=== PATIENT | female | born 1960 | race Caucasian/White ===

== ENCOUNTER → 2021-07-17 | Outpatient (CLI) | LOC: M LABSMTC 10:39 → EDUNIT# 10:45 | PROVIDERS: ATTEND Anesthesiology | DX: Z01.818 Encounter for other preprocedural examination (principal); Z11.52 Encounter for screening for COVID-19 ==

== ENCOUNTER 2021-07-22 06:21 | Day surgery (SDC) | payer BC, SELFPAY ==
[~2021-07-22] VITALS: Ht 172.7 cm; Wt 75.5 kg
[~2021-07-22 06:21] MED LIST: CALM PO; CAND16TA7 PO; LR 1,000 ML IV ONE; ROSU5TAB5 PO
[2021-07-22] MEDS ORDERED: CLINDAMYCIN 900 MG in IV 1 EA IV ONE (06:30)
[2021-07-22] MEDS ORDERED: LIDOCAINE 1% MDV 20ML VIAL As Ordered ONE (07:18)
[2021-07-22] MEDS ORDERED: BUPIVACAINE LIPOSOME/PF 1.3% 20ML VIAL (13.3MG/ML)(EXPAREL)(C9290 PER1MG) As Ordered ONE (07:19)
[2021-07-22] MEDS ORDERED: EPINEPHrine INJ 1 MG/ML 1ML AMP As Ordered ONE (07:19)
[2021-07-22] MEDS ORDERED: LIDOCAINE 2% 100MG/5ML SDV (FOR ANES.) As Ordered ONE (07:22)
[2021-07-22] MEDS ORDERED: ROCURONIUM BROMIDE 50 MG/5 ML VIAL As Ordered ONE ×3 (07:22→10:27)
[2021-07-22] MEDS ORDERED: propofoL 200 MG/20 ML VIAL As Ordered ONE (07:22)
[2021-07-22] MEDS ORDERED: dexameTHASONE 4 MG/ML 1ML VIAL (J1100 PER 1MG) As Ordered ONE (07:22)
[2021-07-22] MEDS ORDERED: ONDANSETRON 4MG/2ML VIAL As Ordered ONE (07:22)
[2021-07-22] MEDS ORDERED: fentaNYL 250 MCG/5 ML INJECTION (J3010) As Ordered ONE (07:23)
[2021-07-22] MEDS ORDERED: MIDAZOLAM INJ 2MG/2ML VIAL (J2250 PER 1MG) As Ordered ONE (07:23)
[2021-07-22] MEDS ORDERED: LACRILUBE (AKWA TEARS) OPHTH OINT 3.5 GM As Ordered ONE (07:26)
[2021-07-22] MEDS ORDERED: SCOPOLAMINE 1MG TRANSDERMAL PATCH TOP ONE (07:30)
[2021-07-22] MEDS ORDERED: SEVOFLURANE INHAL SOLN 250 ML BTL As Ordered ONE (07:59)
[2021-07-22] MEDS ORDERED: GENTAMICIN SULF 80MG/2ML VIAL As Ordered ONE (08:12)
[2021-07-22] MEDS ORDERED: ePHEDrine SULFATE 25 MG/5 ML(5MG/ML) SYRINGE As Ordered ONE ×2 (08:24→09:05)
[2021-07-22] MEDS ORDERED: ACETAMINOPHEN 1000MG 100ML IV BTL (OFIRMEV) (J0131 PER 10MG) As Ordered ONE (08:40)
[2021-07-22] MEDS ORDERED: SUGAMMADEX SODIUM 500 MG/5 ML VIAL (BRIDION) As Ordered ONE (08:40)
[2021-07-22] MEDS ORDERED: HYDROmorphone HCL 2 MG/ML 1ML VIAL As Ordered ONE (08:41)
[2021-07-22] MEDS ORDERED: METOCLOPRAMIDE INJ 10MG/2ML VIAL (J2765 PER 1) As Ordered ONE (08:45)
[2021-07-22] MEDS: CANDESARTAN 16 MG TABLET PO SCH (09:00)
--- NOTE | 2021-07-22 12:36 | POST-OPPD ---
Postoperative Procedure Note Date Of Procedure: Jul 22, 2021 PREOPERATIVE DIAGNOSIS: Bilateral accessory breast, status breast implant with capsular contraction. Breast ptosis. Abdominal lipodystrophy. POSTOPERATIVE DIAGNOSIS: same PROCEDURE: Bilateral breast implant removal, open capsulotomy with bilateral mastopexy, excision of accessory breast tissue bilaterally, suction assisted lipectomy abdomen. SURGEON: Dr Medina WHEEL WORKER: none ANESTHESIA: general ESTIMATED BLOOD LOSS: 150 cc FINDINGS: Intact Ann saline implants Left 420 cc, Right 450 cc. SPECIMENS: Right and left breast implants, Right and left capsule. Right and left accessory tissue COMPLICATIONS: none REPLACED: none DRAINS: 10 mm LAVERN x 2 POSTOPERATIVE CONDITION: stable FRANCESCO MEDINA DO Jul 22, 2021 12:36
--- NOTE | 2021-07-22 12:37 | ROOPDOC ---
[facility] Report Of Operation Report of Operation DATE OF PROCEDURE: 07/22/21 PREOPERATIVE DIAGNOSIS: Bilateral accessory breast, status breast implant with capsular contraction. Breast ptosis. Abdominal lipodystrophy. POSTOPERATIVE DIAGNOSIS: same PROCEDURE: Bilateral breast implant removal, open capsulotomy with bilateral mastopexy, excision of accessory breast tissue bilaterally, suction assisted lipectomy abdomen. SURGEON: Dr Medina HEAVY FORGER: none ANESTHESIA: general ESTIMATED BLOOD LOSS: 150 cc FINDINGS: Intact Ann saline implants Left 420 cc, Right 450 cc. SPECIMENS: Right and left breast implants, Right and left capsule. Right and left accessory tissue COMPLICATIONS: none REPLACED: none DRAINS: 10 mm LAVERN x 2 POSTOPERATIVE CONDITION: stable DESCRIPTION OF PROCEDURE: Procedure: This is a 60-year-old female status post bilateral breast augmentation with revisions about 20 years ago. Patient has capsular contraction on the right breast. She has subpectoral saline implants. She would like to have them removed and breast reconstructed. She also has bilateral accessory breasts which she is also would like for us to remove. Lipodystrophy throughout the abdominal wall is also noted and patient is scheduled for suction assisted lipectomy of the abdomen for that. Risks, benefits and alternatives of the procedure discussed with the patient in detail and she is ready to proceed. The day of surgery patient was marked in the upright position in the holding area. Informed consent was confirmed and then patient was brought into the operating room, placed in supine position. General anesthesia was induced. She was given preoperative antibiotics, heparin and sequential stockings were placed in the lower calves. She is prepped and draped in the usual sterile fashion. We started our procedure on the right side. Curvilinear axillary incision is m concepcion on the lower border of the accessory tissue. We used electrocautery to dissect the excess fat and breast tissue that was protruding. Stasis was obtained using extra cautery. The superior incision carried out, it was tailored to allow nontension closure for the axillary part. Wound is closed in layers with 3-0 Vicryl, 3-0 Monocryl and 3-0 Monocryl V-Loc sutures. At this point we turned our attention to the right breast. Nipple areola was outlined at 42 mm in diameter. Incision carried out around the nipple areola and around the remaining nipple areola part and a vertical incision on the inferior breast. Sharp dissection with electrocautery carried out until the subpectoral pocket was identified. 450 mL saline filled implant was identified completely intact. It was removed without difficulties. Pocket was evaluated under direct vision with lighted retractor and open capsulectomy was performed using electrocautery. Hemostasis was obtained using electrocautery as well. Implant and capsule sent to pathology. Wound irrigated with antibiotic solution. Local flaps were designed to rearrange the breast. Superiorly based pedicle was recreated and mastopexy performed with new nipple areolar complex being at 22 cm from sternal notch. The layers were closed with 3-0 Monocryl sutures. The vertical limb is 7.5 cm excess. Excess tissue inferiorly was measured de- epithelialized and used for inferior portion of the breast. Horizontal scar was closed with interrupted 3-0 Monocryl sutures followed by V lock suture. 10 mm Aneudy-Denis drain was placed through the lateral portion of the horizontal incision. Nipple areolar complex is sutured in place with interrupted 3-0, 4-0 Monocryl, and 5-0 plain gut sutures. Then we turned our attention to the left side. Curvilinear axillary incision is made on the lower border of the accessory tissue. We used electrocautery to dissect the excess fat and breast tissue that was protruding. Stasis was obtained using extra cautery. The superior incision carried out, it was ta ilored to allow non-tension closure for the axillary part. Wound is closed in layers with 3-0 Vicryl, 3-0 Monocryl and 3-0 Monocryl V-Loc sutures. At this point we turned our attention to the left breast. Nipple areola was outlined at 42 mm in diameter. Incision carried out around the nipple areola and around the remaining nipple areola part and a vertical incision on the infer ior breast. Sharp dissection with electrocautery carried out until the subpectoral pocket was identified. 420 mL saline filled implant was identified completely intact. It was removed without difficulties. Pocket was evaluated under direct vision with lighted retractor and open capsulectomy was performed using electrocautery. Hemostasis was obtained using electrocautery as well. Implant and capsule sent to pathology. Wound irrigated with antibiotic solution. Local flaps were designed to rearrange the breast. Superiorly based pedicle was recreated and mastopexy performed with new nipple areolar complex being at 22 cm from sternal notch. The layers were closed with 3-0 Monocryl sutures. The vertical limb is 7.5 cm excess. Excess tissue inferiorly was measured de- epithelialized and used for inferior portion of the breast. Horizontal scar was closed with interrupted 3-0 Monocryl sutures followed by V lock suture. 10 mm Aneudy-Denis drain was placed through the lateral portion of the horizontal incision. Nipple areolar complex is sutured in place with interrupted 3-0, 4-0 Monocryl, and 5-0 plain gut sutures. Good symmetry achieved between the breasts. Stab incisions were carried out in the lower abdomen and superior portion of the umbilicus. Tumescent solution infiltrated throughout the abdomen total of 1300 cc. Vasa liposuction was performed using 3.9 mm, 3 ring cannula for 10 minutes. It was followed by suction assisted lipectomy which resulted in 1300 cc of evacuated suction fluid. Stab incisions closed with 4-0 Monocryl sutures. Prinio dressing applied to the breast incisions followed by a bulky dressing and a surgical bra and abdominal binder. Patient extubated without any difficulties and transferred to recovery room in stable condition. FRANCESCO MEDINA DO Jul 22, 2021 12:37
[2021-07-22] MEDS: LR 1,000 ML IV SCH (12:40)
[2021-07-22] MEDS ORDERED: MORPHINE 4 MG/ML 1ML VIAL/SYRINGE (J2270) IV PRN (12:40)
[2021-07-22] MEDS ORDERED: PERCOCET 5MG/325MG TAB PO PRN ×2 (12:40→13:15)
[2021-07-22] MEDS ORDERED: ONDANSETRON 4MG/2ML VIAL IV PRN ×2 (12:40→13:15)
[2021-07-22] MEDS ORDERED: fentaNYL 100 MCG/2 ML INJECTION (J3010) IV PRN (13:15)
[2021-07-22] MEDS ORDERED: METOCLOPRAMIDE INJ 10MG/2ML VIAL (J2765 PER 1) IV PRN (13:15)
[2021-07-22] MEDS ORDERED: LR 1,000 ML IV SCH (13:15)
[2021-07-22 15:00] VITALS: BP 143/87
[2021-07-22 15:30] VITALS: BP 144/88
[2021-07-22 16:30] VITALS: BP 139/87
[2021-07-22] MEDS: ACETAMINOPHEN TAB 650MG DOSE (2X325MG) PO PRN (16:55)
[2021-07-22 17:30] VITALS: BP 132/84
[2021-07-22 18:24] VITALS: BP 133/85
[2021-07-22] MEDS ORDERED: ROSUVASTATIN 10 MG TAB (CRESTOR) PO SCH (21:00)
[2021-07-22 22:58] VITALS: BP 100/68
[2021-07-23] MEDS: ACETAMINOPHEN TAB 650MG DOSE (2X325MG) PO PRN (01:29)
[2021-07-23] MEDS: LR 1,000 ML IV SCH (02:00)
[2021-07-23 02:03] VITALS: BP 109/62
[2021-07-23 06:28] VITALS: BP 104/69
[2021-07-23] MEDS: CANDESARTAN 16 MG TABLET PO SCH (09:00)
--- NOTE | 2021-07-23 09:25 | IPNPDOC ---
Subjective General Date Seen: Jul 23, 2021 Subject Chief Complaint/History The patient is a 60-year-old female admitted with a reason for visit of Breast Ptosis, Breast Implant, Capsular Contracture. Patient status post bilateral accessory breast removal, bilateral breast implants removal with tissue rearrangement and mastopexy. Suction assisted lipectomy abdomen. Postop day 1. Patient is doing well, ambulating, tolerating regular diet, pain controlled with oral medications. Current Medications Current Medications Current Medications Medications (Trade) Dose Ordered Sig/Edgard Route PRN Reason Start Time Stop Time Status Last Admin Dose Admin Acetaminophen (Tylenol Tab) 650 mg Q6H PRN PO MILD PAIN (PS 1-4) 07/22/21 12:40 07/23/21 01:29 Candesartan Cilexetil (Atacand) 16 mg DAILY PO 07/22/21 09:00 Fentanyl Citrate (Sublimaze) 25 mcg Q5MP PRN IV PAIN LEVEL 8-10 07/22/21 13:15 07/22/21 15:15 DC Lactated Ringer's 1,000 ml @ 75 mls/hr [id number] IV 07/22/21 12:40 Lactated Ringer's 1,000 ml @ 100 mls/hr Q10H IV 07/22/21 13:15 07/22/21 15:15 DC Metoclopramide HCl (REGLAN INJection) 10 mg Q6HP PRN IV NAUSEA OR VOMITING 07/22/21 13:15 07/22/21 15:15 DC Morphine Sulfate (Morphine Sulfate Inj) 4 mg Q4HP PRN IV SEVERE PAIN (PS 8-10) 07/22/21 12:40 Ondansetron HCl (ZOFRAN INJection) 4 mg Q4H PRN IV NAUSEA OR VOMITING 07/22/21 12:40 Ondansetron HCl (ZOFRAN INJection) 4 mg Q4HP PRN IV NAUSEA OR VOMITING 07/22/21 13:15 07/22/21 15:15 DC Oxycodone/ Acetaminophen (Percocet 5mg/ 325mg Tablet) 1 tab ASDIRECTED PRN PO PAIN LEVEL 1-4 07/22/21 13:15 07/22/21 15:15 DC Oxycodone/ Acetaminophen (Percocet 5mg/ 325mg Tablet) 2 tab Q4HP PRN PO PAIN LEVEL 4-7 07/22/21 12:40 07/23/21 09:02 Rosuvastatin Calcium (Crestor) 5 mg QPM PO 07/22/21 21:00 07/22/21 20:32 Allergies Coded Allergies: Penicillins (Verified Allergy, Unknown, unknown -as child, 07/22/21) Objective Physical Examination Examination GENERAL APPEARANCE:Patient seen, laying in bed, awake, alert, and oriented. Comfortable, in no acute distress. SKIN: Warm and moist. BREAST: Right and left soft, non-tender incisions intact. LAVERN drains: 60/60 cc/24 hr. NAC: Viable, warm, symmetrical, mild post-op ecchymosis, no expanding hematoma. LUNGS: Clear to auscultation bilaterally. No wheezing appreciated. HEART: No chest wall abnormalities. Regular rate and rhythm with no murmurs appreciated. ABDOMEN: Abdomen is soft, non-tender, non-distended. Postop ecchymosis moderate. No expanding hematomas. EXTREMITIES: No edema identified. No calf tenderness. Vital Signs Vital Signs Date Time Temp Pulse Resp B/P (MAP) Pulse Ox O2 Delivery O2 Flow Rate FiO2 07/23/21 09:02 18 99 Room Air 07/23/21 06:28 97.6 83 104/69 (81) 07/22/21 12:39 3 I&Os I&O- Last 24 Hours up to 6 AM 07/23/21 06:00 Intake Total 3000 ml Output Total 710 ml Balance 2290 ml Impression Status post bilateral accessory breast removal, bilateral breast implants removal with tissue rearrangement and mastopexy. Suction assisted lipectomy abdomen. Postop day 1. Stable for discharge. Dressings changed today. Continue monitoring LAVERN drains at home. Continue with support bra and abdominal binder at all times. Follow-up with plastic surgery after discharge. Plan / VTE VTE Prophylaxis Ordered?: Yes FRANCESCO MEDINA DO Jul 23, 2021 09:25
[2021-07-23] MEDS ORDERED: TRAM50TA2 PO (10:44)
== END 2021-07-23 13:55 | disposition home or self-care (01) ==
LOC: M SDC 06:21 → M MS5PR 14:45 → M SDC 07-23 13:55
PROVIDERS: ATTEND Plastic Surgery Surgery of the Hand
DX: N60.31 Fibrosclerosis of right breast (principal); N60.32 Fibrosclerosis of left breast; N64.81 Ptosis of breast; Q83.1 Accessory breast; T85.44XA Capsular contracture of breast implant, initial encounter; Y81.2 Prosthetic and other implants, materials and accessory general- and plastic-surgery devices associated with adverse incidents; E88.1 Lipodystrophy, not elsewhere classified; I10 Essential (primary) hypertension; E78.5 Hyperlipidemia, unspecified; R12 Heartburn; Z88.0 Allergy status to penicillin; Z79.899 Other long term (current) drug therapy
CPT/HCPCS: 15830; 15839; 19316; 19370; 88300; 88304; C9290; J0131; J0171; J1100; J1170; J1580; J2250; J2405; J2765; J3010